=== PATIENT | male | born 1960 | race Hispanic/Latino ===

== ENCOUNTER 2017-05-15 16:59 | Inpatient (IN) | payer OTHER ==
[2017-05-15] MEDS ORDERED: Sodium Chloride 0.9% 1,000 ML IV STA (17:24)
--- NOTE | 2017-05-15 17:33 | ED PDOC ---
HPI: Male Pain Time Seen by Provider: 05/15/17 17:08 Chief Complaint (Nursing): Male Genitourinary History Per: Patient History/Exam Limitations: no limitations Onset/Duration Of Symptoms: Days Current Symptoms Are (Timing): Still Present Severity: Moderate Pain Scale Rating Of: 4 Quality Of Discomfort: Dull Associated Symptoms: Fever, Chills, Urinary Symptoms. denies: Nausea, Vomiting , Diarrhea, Loss Of Appetite, Back Pain, Chest Pain, Constipation Alleviating Factors: None Additional History Per: Patient Additional Complaint(s): Pt co dysuria and left flank pain for 1 day. Pt reports fever today. He took motrin earlier with some relief. Reports hx of kidney stones in the past. No abdominal pain , no vomiting, no diarrhea. no hematuria. Past Medical History Reviewed: Historical Data, Nursing Documentation, Vital Signs Vital Signs: Last Vital Signs Temp 100.3 F H 05/15/17 17:02 Pulse 126 H 05/15/17 17:02 Resp 18 05/15/17 17:02 BP 164/96 H 05/15/17 17:02 Pulse Ox 99 05/15/17 17:02 - Medical History PMH: HTN, Kidney Stones - Surgical History Surgical History: No Surg Hx - Family History Family History: States: No Known Family Hx - Allergies Allergies/Adverse Reactions: Allergies Allergy/AdvReac Type Severity Reaction Status Date / Time shrimp Allergy SHORTNESS Verified 05/15/17 17:02 OF BREATH Review of Systems ROS Statement: Except As Marked, All Systems Reviewed And Found Negative Physical Exam - Reviewed Nursing Documentation Reviewed: Yes Vital Signs Reviewed: Yes - Physical Exam Appears: Positive for: Non-toxic, No Acute Distress Head Exam: Positive for: ATRAUMATIC Skin: Positive for: Warm, Dry Eye Exam: Positive for: EOMI Neck: Positive for: Normal, Painless ROM Cardiovascular/Chest: Positive for: Regular Rate, Rhythm, Tachycardia Respiratory: Positive for: Normal Breath Sounds. Negative for: Respiratory Distress Gastrointestinal/Abdominal: Positive for: Soft. Negative for: Tenderness Back: Negative for: L CVA Tenderness, R CVA Tenderness Extremity: Positive for: Normal ROM Neurologic/Psych: Positive for: Alert, Oriented - Laboratory Results Result Diagrams: 05/15/17 17:15 05/15/17 17:15 - ECG O2 Sat by Pulse Oximetry: 99 Medical Decision Making Medical Decision Making: Flank pain, fever and dysuria Diff include UTI-pyelonephritis, obstructive ureteral stone with UTI. Plan Labs Blood cx vbg shock panel urine cx CT abdomen w/o contrast IVF tylenol 650 mg PO rocephine 1 gm IV reassess FINDINGS: There is limited evaluation of the solid organs without the administration of IV contrast. LOWER THORAX: No visible consolidation, pleural effusion, or pneumothorax. Small hiatal hernia. LIVER: Unremarkable unenhanced appearance. GALLBLADDER AND BILE DUCTS: Unremarkable unenhanced appearance. PANCREAS: 7 mm pancreatic body/tail calcification, nonspecific. Otherwise unremarkable unenhanced appearance. SPLEEN: Unremarkable unenhanced appearance. ADRENALS: Unremarkable unenhanced appearance. KIDNEYS AND URETERS: No hydronephrosis or obstructing renal calculus. BLADDER: Mild wall thickening of the urinary bladder. REPRODUCTIVE: The prostate gland measures approximately 3.7 x 5.2 cm. APPENDIX: The appendix is not identified. No secondary signs of acute appendicitis. BOWEL: The stomach is nondistended. Lack of oral contrast limits evaluation for bowel pathology. The bowel loops appear within normal limits of caliber without evidence of intestinal obstruction. Minimal inflammatory changes of the left colon ; correlate clinically for possibility of acute diverticulitis. PERITONEUM: No significant free fluid. No definite free air. LYMPH NODES: No bulky lymphadenopathy identified. VASCULATURE: No aortic aneurysm. BONES: Osseous demineralization. Degenerative changes. OTHER FINDINGS: None. IMPRESSION: Mild urinary bladder wall thickening. Recommend correlation with urinalysis. 7 mm pancreatic body/ tail calcification, nonspecific. Diverticulosis. Minimal inflammatory changes of the left colon ; correlate clinically for possibility of acute diverticulitis. Enlarged prostate gland. Recommend correlation with PSA. Additional findings as above. Disposition - Clinical Impression Clinical Impression: Urinary tract infection, Sepsis, Prostate enlargement - Patient ED Disposition Is Patient to be Admitted: Yes Discussed With : Mason Jaimes Doctor Will See Patient In The: Hospital Counseled Patient/Family Regarding: Studies Performed, Diagnosis - Disposition Disposition Time: 19:00 Condition: FAIR - Pt Status Changed To: Hospital Disposition Of: Inpatient - Admit Certification Admit to Inpatient:: After my assessment, the patient will require hospitalization for at least two midnights. This is because of the severity of symptoms shown, intensity of services needed, and/or the medical risk in this patient being treated as an outpatient. - POA Present On Arrival: None
[2017-05-15] MEDS ORDERED: cefTRIAXone (Rocephin) 1 gm Inj ONE (17:38)
[2017-05-15 17:46] LABS: BASO # 0.1 K/uL (0.0-0.2); BASO % 0.4 % (0.0-2.0); HEMATOCRIT 40.5 % (35.0-51.0); LYMPH # 0.6 K/uL (1.0-4.3); LYMPH % 3.6 % (20.0-40.0); MEAN CELL VOLUME 97.1 fl (80.0-94.0); MEAN CORPUSCULAR HEMOGLOBIN 33.5 pg (27.0-31.0); MEAN CORPUSCULAR HGB CONC 34.5 g/dL (33.0-37.0); MEAN PLATELET VOLUME 10.4 fl (7.2-11.7); MONO # 0.9 K/uL (0.0-0.8); MONO % 5.5 % (0.0-10.0); NEUT # 14.7 K/uL (1.8-7.0); NEUT % 90.5 % (50.0-75.0); PLATELET COUNT 116 K/uL (130-400); RED CELL DISTRIBUTION WIDTH 13.4 % (11.5-14.5); WHITE BLOOD COUNT 16.2 K/uL (4.8-10.8)
[2017-05-15 17:46] LABS: VENOUS BLOOD GAS BASE EXCESS 5.2 mmol/L (0.0-2.0); VENOUS BLOOD GAS PCO2 39 mmHg (40-60); VENOUS BLOOD PH 7.48 (7.32-7.43)
[2017-05-15 17:52] LABS: RBC URINE 49 /hpf (0-3); URINE BACTERIA OCC (<OCC); URINE BILIRUBIN NEGATIVE (NEGATIVE); URINE BLOOD SMALL (NEGATIVE); URINE COLOR YELLOW (YELLOW); URINE GLUCOSE (UA) NEG (Normal); URINE KETONE NEGATIVE (NEGATIVE); URINE LEUKOCYTE ESTERASE LARGE Leu/uL (Negative); URINE PROTEIN 30 mg/dL (NEGATIVE); URINE UROBILINOGEN 0.2-1.0 mg/dL (0.2-1.0); WBC URINE 146 /hpf (0-5)
[2017-05-15 17:54] LABS: ALB/GLOB RATIO 1.3 (1.0-2.1); ALKALINE PHOSPHATASE 85 U/L (38-126); ALT/SGPT 41 U/L (21-72); AST/SGOT 28 U/L (17-59); BILIRUBIN,TOTAL 1.3 mg/dl (0.2-1.3); BLOOD UREA NITROGEN 11 mg/dl (9-20); CALCIUM 9.3 mg/dL (8.4-10.2); CARBON DIOXIDE 25 mmol/L (22-30); CHLORIDE 100 mmol/L (98-107); GFR AFRICAN-AMERICAN > 60; GLUCOSE,RANDOM 103 mg/dL (75-110); POTASSIUM 3.7 MMOL/L (3.6-5.0); SODIUM 137 mmol/l (132-148); TOTAL PROTEIN 8.6 G/DL (6.3-8.2)
--- NOTE | 2017-05-15 18:47 | CT ---
PROCEDURE: CT Abdomen and Pelvis without Oral or IV contrast. HISTORY: left flank pain dysuria fever COMPARISON: Abdominal x-ray performed 09/03/13 TECHNIQUE: Contiguous axial images of the abdomen and pelvis. No oral or IV contrast administered. Coronal and Sagittal reformats generated and reviewed. Radiation dose: Total exam DLP = 827.91 mGy-cm. This CT exam was performed using one or more of the following dose reduction techniques: Automated exposure control, adjustment of the mA and/or kV according to patient size, and/or use of iterative reconstruction technique. FINDINGS: There is limited evaluation of the solid organs without the administration of IV contrast. LOWER THORAX: No visible consolidation, pleural effusion, or pneumothorax. Small hiatal hernia. LIVER: Unremarkable unenhanced appearance. GALLBLADDER AND BILE DUCTS: Unremarkable unenhanced appearance. PANCREAS: 7 mm pancreatic body/tail calcification, nonspecific. Otherwise unremarkable unenhanced appearance. SPLEEN: Unremarkable unenhanced appearance. ADRENALS: Unremarkable unenhanced appearance. KIDNEYS AND URETERS: No hydronephrosis or obstructing renal calculus. BLADDER: Mild wall thickening of the urinary bladder. REPRODUCTIVE: The prostate gland measures approximately 3.7 x 5.2 cm. APPENDIX: The appendix is not identified. No secondary signs of acute appendicitis. BOWEL: The stomach is nondistended. Lack of oral contrast limits evaluation for bowel pathology. The bowel loops appear within normal limits of caliber without evidence of intestinal obstruction. Minimal inflammatory changes of the left colon ; correlate clinically for possibility of acute diverticulitis. PERITONEUM: No significant free fluid. No definite free air. LYMPH NODES: No bulky lymphadenopathy identified. VASCULATURE: No aortic aneurysm. BONES: Osseous demineralization. Degenerative changes. OTHER FINDINGS: None. IMPRESSION: Mild urinary bladder wall thickening. Recommend correlation with urinalysis. 7 mm pancreatic body/ tail calcification, nonspecific. Diverticulosis. Minimal inflammatory changes of the left colon ; correlate clinically for possibility of acute diverticulitis. Enlarged prostate gland. Recommend correlation with PSA. Additional findings as above.
[2017-05-15 19:50] LABS: EOSINOPHIL 1 % (0-7); NEUTROPHIL 86 % (42-75); TOTAL CELLS COUNTED 100
[2017-05-15] MEDS: Dextrose 5%/0.45% NS 1,000 ML IV SCH (21:42)
[2017-05-16] MEDS: Dextrose 5%/0.45% NS 1,000 ML IV SCH ×2 (05:48→16:59)
[2017-05-16 06:59] LABS: MEAN CELL VOLUME 97.8 fl (80.0-94.0); MEAN CORPUSCULAR HEMOGLOBIN 33.5 pg (27.0-31.0); MEAN CORPUSCULAR HGB CONC 34.3 g/dL (33.0-37.0); RED CELL DISTRIBUTION WIDTH 13.7 % (11.5-14.5); WHITE BLOOD COUNT 17.2 K/uL (4.8-10.8)
[2017-05-17] MEDS: Dextrose 5%/0.45% NS 1,000 ML IV SCH (03:43)
[2017-05-17 04:18] VITALS: RESP 20
[2017-05-17 08:33] LABS: HEMATOCRIT 36.4 % (35.0-51.0); MEAN CELL VOLUME 96.6 fl (80.0-94.0); MEAN CORPUSCULAR HEMOGLOBIN 34.3 pg (27.0-31.0); MEAN CORPUSCULAR HGB CONC 35.5 g/dL (33.0-37.0); RED CELL DISTRIBUTION WIDTH 13.9 % (11.5-14.5)
[2017-05-17 08:41] LABS: ALB/GLOB RATIO 1.3 (1.0-2.1); ALKALINE PHOSPHATASE 59 U/L (38-126); ALT/SGPT 33 U/L (21-72); AST/SGOT 19 U/L (17-59); BILIRUBIN,TOTAL 0.6 mg/dl (0.2-1.3); BLOOD UREA NITROGEN 8 mg/dl (9-20); CALCIUM 8.6 mg/dL (8.4-10.2); CARBON DIOXIDE 26 mmol/L (22-30); CHLORIDE 104 mmol/L (98-107); GFR AFRICAN-AMERICAN > 60; GLUCOSE,RANDOM 106 mg/dL (75-110); POTASSIUM 3.5 MMOL/L (3.6-5.0); SODIUM 137 mmol/l (132-148); TOTAL PROTEIN 6.9 G/DL (6.3-8.2)
[2017-05-17 08:52] VITALS: TEMP 98.6; O2SAT 100
[2017-05-17 13:14] VITALS: BP 117/67; PULSE 90
[2017-05-17 14:37] LABS: TOTAL PSA 3.2 ng/mL (<=4.0)
[2017-05-17 14:48] LABS: BASO % 0.4 % (0.0-2.0); EOS % 0.3 % (0.0-4.0); HEMATOCRIT 37.2 % (35.0-51.0); LYMPH % 11.2 % (20.0-40.0); MEAN CELL VOLUME 97.9 fl (80.0-94.0); MEAN CORPUSCULAR HEMOGLOBIN 33.8 pg (27.0-31.0); MEAN CORPUSCULAR HGB CONC 34.5 g/dL (33.0-37.0); MEAN PLATELET VOLUME 9.8 fl (7.2-11.7); MONO # 0.8 K/uL (0.0-0.8); MONO % 8.9 % (0.0-10.0); NEUT # 6.9 K/uL (1.8-7.0); NEUT % 79.2 % (50.0-75.0); RED CELL DISTRIBUTION WIDTH 13.9 % (11.5-14.5); WHITE BLOOD COUNT 8.7 K/uL (4.8-10.8)
--- NOTE | 2017-05-17 15:09 | CP.PCM.HP ---
History of Present Illness - History of Present Illness History of Present Illness: 57 y/o male with PMHx of controlled HTN reported to the ED complaining of dysuria and left flank pain for 1 day. Pt reports fever and chills on day of presentation. He took motrin earlier with some relief. Reports hx of kidney stones in the past. Reports feeling sensation in his urethra when he urinates and reports increased frequecy. Denies recent unprotected sexual activity. Denies headaches, changes in vision, CP/SOB/Palpitations, N/V/D/C, numbness/ tingling, hematuria, pyuria. Present on Admission - Present on Admission Any Indicators Present on Admission: No Review of Systems - Review of Systems All systems: reviewed and no additional remarkable complaints except - Constitutional Constitutional: As Per HPI Past Patient History - Past Medical History & Family History Past Medical History?: Yes Past Family History: Reviewed and not pertinent - Past Social History Smoking Status: Never Smoked Alcohol: Occasional Drugs: Denies Home Situation {Lives}: With Family Domestic Violence: Negative - CARDIAC Hx Hypertension: Yes - PULMONARY Hx Respiratory Disorders: No - NEUROLOGICAL Hx Neurological Disorder: No - HEENT Hx HEENT Problems: No - RENAL Hx Kidney Stones: Yes - ENDOCRINE/METABOLIC Hx Endocrine Disorders: No - HEMATOLOGICAL/ONCOLOGICAL Hx Blood Disorders: No Hx AIDS: No Hx Human Immunodeficiency Virus (HIV): No - INTEGUMENTARY Hx Dermatological Problems: No - MUSCULOSKELETAL/RHEUMATOLOGICAL Hx Musculoskeletal Disorders: No Hx Falls: Yes - GASTROINTESTINAL Hx Gastrointestinal Disorders: No - GENITOURINARY/GYNECOLOGICAL Hx Genitourinary Disorders: No - PSYCHIATRIC Hx Psychophysiologic Disorder: No Hx Substance Use: No - SURGICAL HISTORY Hx Appendectomy: Yes - ANESTHESIA Hx Anesthesia: Yes Hx Anesthesia Reactions: No Meds Allergies/Adverse Reactions: Allergies Allergy/AdvReac Type Severity Reaction Status Date / Time shrimp Allergy SHORTNESS Verified 05/16/17 08:09 OF BREATH Physical Exam - Constitutional Appears: Non-toxic, No Acute Distress - Head Exam Head Exam: ATRAUMATIC, NORMOCEPHALIC - Eye Exam Eye Exam: EOMI Pupil Exam: PERRL - ENT Exam ENT Exam: Mucous Membranes Moist - Neck Exam Neck exam: Positive for: Normal Inspection - Respiratory Exam Respiratory Exam: Clear to Auscultation Bilateral, NORMAL BREATHING PATTERN. absent: Rales, Rhonchi, Wheezes - Cardiovascular Exam Cardiovascular Exam: REGULAR RHYTHM, RRR, +S1, +S2. absent: Tachycardia, JVD, Rubs, Systolic Murmur - GI/Abdominal Exam GI & Abdominal Exam: Normal Bowel Sounds, Soft, Tenderness. absent: Distended, Firm, Guarding, Hernia, Rigid - Extremities Exam Extremities exam: Positive for: normal inspection - Back Exam Back exam: NORMAL INSPECTION. absent: CVA tenderness (L), CVA tenderness (R) - Neurological Exam Neurological exam: Alert, CN II-XII Intact, Oriented x3 Results - Vital Signs Recent Vital Signs: Last Vital Signs Temp 98.6 F 05/17/17 13:00 Pulse 90 05/17/17 13:00 Resp 20 05/17/17 13:00 BP 117/67 05/17/17 13:00 Pulse Ox 100 05/17/17 13:00 - Labs Result Diagrams: 05/17/17 14:40 05/17/17 08:15 Labs: Laboratory Results - last 24 hr 05/16/17 05/17/17 05/17/17 12:02 08:15 08:15 WBC 10.0 RBC 3.77 L Hgb 12.9 Hct 36.4 MCV 96.6 H MCH 34.3 H MCHC 35.5 RDW 13.9 Plt Count 62 L D MPV Neut % (Auto) Lymph % (Auto) [place] % (Auto) Eos % (Auto) Baso % (Auto) Neut # Lymph # [place] # Eos # Baso # Sodium 137 Potassium 3.5 L Chloride 104 Carbon Dioxide 26 Anion Gap 11 BUN 8 L Creatinine 0.7 L Est GFR ( Amer) > 60 Est GFR (Non-Af Amer) > 60 Random Glucose 106 Calcium 8.6 Total Bilirubin 0.6 AST 19 ALT 33 Alkaline Phosphatase 59 Total Protein 6.9 Albumin 3.9 Globulin 3.1 Albumin/Globulin Ratio 1.3 Free PSA 1.1 % Free PSA 34 Total PSA 3.2 Prostate Cancer Risk 24 05/17/17 14:40 WBC 8.7 RBC 3.80 L Hgb 12.8 Hct 37.2 MCV 97.9 H MCH 33.8 H MCHC 34.5 RDW 13.9 Plt Count 95 L D MPV 9.8 Neut % (Auto) 79.2 H Lymph % (Auto) 11.2 L [place] % (Auto) 8.9 Eos % (Auto) 0.3 Baso % (Auto) 0.4 Neut # 6.9 Lymph # 1.0 [place] # 0.8 Eos # 0.0 Baso # 0.0 Sodium Potassium Chloride Carbon Dioxide Anion Gap BUN Creatinine Est GFR ( Amer) Est GFR (Non-Af Amer) Random Glucose Calcium Total Bilirubin AST ALT Alkaline Phosphatase Total Protein Albumin Globulin Albumin/Globulin Ratio Free PSA % Free PSA Total PSA Prostate Cancer Risk Assessment & Plan (1) Prostatitis Status: Resolved (2) Thrombocytopenia Status: Resolved (3) Sepsis Status: Resolved
== END 2017-05-17 16:30 | disposition home or self-care (01) | DRG 872 ==
LOC: H.ER 16:59 → H.ERHOLD 19:14 → H.PEDS 20:06
PROVIDERS: ADMIT Family Medicine; ATTEND Family Medicine
DX: A41.9 Sepsis, unspecified organism (principal); D69.6 Thrombocytopenia, unspecified; I10 Essential (primary) hypertension; N41.9 Inflammatory disease of prostate, unspecified; N40.1 Benign prostatic hyperplasia with lower urinary tract symptoms; Z87.442 Personal history of urinary calculi

== ENCOUNTER 2017-11-29 20:55 | Emergency (ER) | payer OTHER ==
[2017-11-29 21:30] VITALS: RESP 16; O2SAT 100
--- NOTE | 2017-11-29 22:33 | ED PDOC ---
HPI: General Adult Time Seen by Provider: 11/29/17 21:54 Chief Complaint (Nursing): Fever Chief Complaint (Provider): Cough and Fever History Per: Patient History/Exam Limitations: no limitations Onset/Duration Of Symptoms: Days (x2) Current Symptoms Are (Timing): Still Present Additional Complaint(s): 57 year old male with a past medical history of HTN, BPH, and kidney stones, who presents to the ED complaining of cough and fever x2 days. States his symptoms began last night with a "scratchy" throat which developed into a cough with associated fever, chills, body ache, and rhinorrhea this morning. Reports he took Naproxen and Amoxicillin. Says he took the Amoxicillin because he was going to see his Dentist and he always takes it before seeing his Dentist. Reports developing a fever again just prior to arrival and a cough productive of sputum, but denies hemoptysis. Reports last taking Naproxen at 4pm. Denies vomiting, diarrhea, urinary symptoms, and rash. 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 PMD: Dr. Lacy Past Medical History Reviewed: Historical Data, Nursing Documentation, Vital Signs Vital Signs: Last Vital Signs Temp 101.7 F H 11/29/17 22:13 Pulse 132 H 11/29/17 21:27 Resp 16 11/29/17 21:27 BP 131/71 11/29/17 21:27 Pulse Ox 100 11/29/17 23:05 - Medical History PMH: HTN, Kidney Stones Denies: HIV, Chronic Kidney Disease - Surgical History Surgical History: Appendectomy - Family History Family History: States: Unknown Family Hx - Social History Current smoker - smoking cessation education provided: No Alcohol: None Drugs: Denies - Home Medications Home Medications: Ambulatory Orders Medication Instructions Recorded Lisinopril/Hydrochlorothiazide 1 each PO DAILY 05/16/17 [Lisinopril-Hctz 10-12.5 mg Tab] Zolpidem [Ambien] 5 mg PO PRN PRN 05/16/17 Ibuprofen [Motrin Tab] 600 mg PO Q8 PRN #60 tab 11/29/17 Oseltamivir [Tamiflu] 75 mg PO BID #10 cap 11/29/17 - Allergies Allergies/Adverse Reactions: Allergies Allergy/AdvReac Type Severity Reaction Status Date / Time shrimp Allergy SHORTNESS Verified 11/29/17 21:26 OF BREATH Review of Systems ROS Statement: Except As Marked, All Systems Reviewed And Found Negative Constitutional: Positive for: Fever, Chills, Other (body aches) ENT: Positive for: Nose Discharge, Throat Pain Respiratory: Positive for: Cough, Sputum. Negative for: Hemoptysis Gastrointestinal: Negative for: Vomiting, Diarrhea Genitourinary Male: Negative for: Dysuria, Frequency, Incontinence Skin: Negative for: Rash Physical Exam - Reviewed Nursing Documentation Reviewed: Yes Vital Signs Reviewed: Yes - Physical Exam Appears: Positive for: Non-toxic, No Acute Distress Head Exam: Positive for: ATRAUMATIC, NORMOCEPHALIC Skin: Positive for: Warm, Dry Eye Exam: Positive for: EOMI, PERRL ENT: Negative for: Pharyngeal Erythema, Tonsillar Exudate Neck: Positive for: Painless ROM, Supple Cardiovascular/Chest: Positive for: Tachycardia. Negative for: Murmur Gastrointestinal/Abdominal: Positive for: Soft. Negative for: Tenderness Back: Positive for: Normal Inspection. Negative for: Decreased ROM Extremity: Positive for: Normal ROM. Negative for: Deformity Lymphatic: Negative for: Adenopathy Neurologic/Psych: Positive for: Alert. Negative for: Motor/Sensory Deficits - ECG O2 Sat by Pulse Oximetry: 100 (RA) Pulse Ox Interpretation: Normal Medical Decision Making Medical Decision Making: Time: 22:05 Initial Impression: Influenza-like illness Initial Plan: --Chest X-Ray 2 views --Tamiflu 75 mg PO --Tylenol 975 mg PO --Influenza A B --Reevaluation Scribe Attestation: Documented by Farzad Short, acting as a scribe for Alethea Kearney MD. Provider Scribe Attestation: All medical record entries made by the Scribe were at my direction and personally dictated by me. I have reviewed the chart and agree that the record accurately reflects my personal performance of the history, physical exam, medical decision making, and the department course for this patient. I have also personally directed, reviewed, and agree with the discharge instructions and disposition. Disposition - Clinical Impression Clinical Impression: Influenza-like illness Counseled Patient/Family Regarding: Studies Performed, Diagnosis, Need For Followup, Rx Given - Disposition Disposition: Routine/Home Disposition Time: 23:42 Condition: STABLE Prescriptions: Ibuprofen [Motrin Tab] 600 mg PO Q8 PRN #60 tab PRN Reason: pain or fever Oseltamivir [Tamiflu] 75 mg PO BID #10 cap Instructions: Influenza (ED) Forms: [facility] ED School/Work Excuse
[2017-11-29 23:59] VITALS: BP 103/69; PULSE 108; TEMP 99.7
--- NOTE | 2017-11-30 09:57 | RAD ---
HISTORY: fever cough COMPARISON: Chest radiograph dated 10/18/2010. TECHNIQUE: Chest PA and lateral FINDINGS: LUNGS: Biapical pleural-parenchymal scarring. PLEURA: No significant pleural effusion identified. No pneumothorax apparent. CARDIOVASCULAR: Cardiomediastinal silhouette within normal limits. OSSEOUS STRUCTURES: Unchanged. VISUALIZED UPPER ABDOMEN: Normal. OTHER FINDINGS: None. IMPRESSION: No active disease.
== END 2017-11-30 00:01 | disposition home or self-care (01) ==
LOC: H.ER 20:55
DX: J11.1 Influenza due to unidentified influenza virus with other respiratory manifestations (principal); I10 Essential (primary) hypertension; N40.0 Benign prostatic hyperplasia without lower urinary tract symptoms

== ENCOUNTER 2018-03-05 15:13 | Emergency (ER) | payer OTHER ==
[2018-03-05 15:17] VITALS: BP 144/92; PULSE 95; RESP 18; TEMP 97.9; O2SAT 99
--- NOTE | 2018-03-05 16:10 | ED PDOC ---
Lower Extremity Pain/Injury Time Seen by Provider: 03/05/18 15:15 Chief Complaint (Nursing): Lower Extremity Problem/Injury Chief Complaint (Provider): I banged my toe History Per: Patient History/Exam Limitations: no limitations Severity: Moderate Additional Complaint(s): 57yo male struck left lateral foot/ 5th toe on couch 8 days ago. C/o pain to area since then. Using surgical shoe for comfort. Denies ankle, knee or hip pain. States was "black and blue" earlier. - Ankle/Foot Description Of Injury: Struck Against Object Alleviating Factor(s): Elevation Past Medical History Vital Signs: Last Vital Signs Temp 97.9 F 03/05/18 15:15 Pulse 95 H 03/05/18 15:15 Resp 18 03/05/18 15:15 BP 144/92 H 03/05/18 15:15 Pulse Ox 99 03/05/18 15:15 - Medical History PMH: HTN, Kidney Stones Denies: HIV, Chronic Kidney Disease - Surgical History Surgical History: Appendectomy - Family History Family History: States: Unknown Family Hx - Home Medications Home Medications: Ambulatory Orders Medication Instructions Recorded Lisinopril/Hydrochlorothiazide 1 each PO DAILY 05/16/17 [Lisinopril-Hctz 10-12.5 mg Tab] Zolpidem [Ambien] 5 mg PO PRN PRN 05/16/17 Ibuprofen [Motrin Tab] 600 mg PO Q8 PRN #60 tab 11/29/17 Oseltamivir [Tamiflu] 75 mg PO BID #10 cap 11/29/17 - Allergies Allergies/Adverse Reactions: Allergies Allergy/AdvReac Type Severity Reaction Status Date / Time shrimp Allergy SHORTNESS Verified 03/05/18 15:15 OF BREATH Review of Systems Musculoskeletal: Positive for: Foot Pain. Negative for: Back Pain, Leg Pain Physical Exam - Reviewed Nursing Documentation Reviewed: Yes Vital Signs Reviewed: Yes - Physical Exam Appears: Positive for: Well, Non-toxic Head Exam: Positive for: ATRAUMATIC Respiratory: Negative for: Respiratory Distress Extremity: Positive for: Other (L 5th digit tenderness base toe to distal MT. ) Neurologic/Psych: Positive for: Gait (slight limp but stable) - ECG O2 Sat by Pulse Oximetry: 99 - Radiology X-Ray: Interpreted by [place] X-Ray Interpretation: Other (neg fractures) Medical Decision Making Medical Decision Making: rec amber tape followup podiatry if pain persists needs further imaging Disposition - Clinical Impression Clinical Impression: Foot contusion - Patient ED Disposition Is Patient to be Admitted: No - Disposition Referrals: Yolanda Morel DPM [Medical Doctor] - Podiatry Clinic [Outside] Disposition: Routine/Home Disposition Time: 15:55 Condition: GOOD Instructions: Contusion (DC), Foot Sprain (DC) Forms: [employer] ([place])
--- NOTE | 2018-03-05 16:36 | RAD ---
PROCEDURE: Left Foot Radiographs. HISTORY: 5th toe injury x1 week COMPARISON: None. FINDINGS: BONES: Large plantar calcaneal spur. No acute fracture. JOINTS: Evidence of hallux valgus repair. SOFT TISSUES: Normal. OTHER FINDINGS: None. IMPRESSION: No acute findings related to/accounting for the clinical presentation. Additional benign and/or incidental findings described above.
== END 2018-03-05 16:08 | disposition home or self-care (01) ==
LOC: H.ER 15:13
DX: S90.122A Contusion of left lesser toe(s) without damage to nail, initial encounter (principal); W22.03XA Walked into furniture, initial encounter; I10 Essential (primary) hypertension; Z87.442 Personal history of urinary calculi